=== PATIENT | female | born 1980 | race Two or more races ===

== ENCOUNTER 2019-06-24 17:15 | Emergency (ER) | payer MEDICAID ==
[~2019-06-24] VITALS: Ht 162.6 cm; Wt 90.7 kg
--- NOTE | 2019-06-24 17:33 | NUR ---
PT BIB C/O FEVER AND BODY ACHE FOR 2 DAYS, PT IS AAOX4, NOT IN RESPIRATORY DISTRESS, HOOKED TO MONITOR, KEPT RESTED AND COMFORTABLE, WILL CONTINUE TO MONITOR.
--- NOTE | 2019-06-24 17:38 | NUR ---
urine specimen collected and sent to lab.
--- NOTE | 2019-06-24 17:40 | NUR ---
OLGA BLAKE AT BEDSIDE FOR EVAL.
[2019-06-24] MEDS ORDERED: ONDANSETRON HCL/PF 4 MG/2 ML VIAL ONE (17:53)
[2019-06-24] MEDS ORDERED: IBUPROFEN 600 MG TABLET PO ONE ×2 (17:53→18:00)
[2019-06-24] MEDS ORDERED: IV NS 0.9% 1,000 ML BAG IV ONE (18:00)
[2019-06-24] MEDS ORDERED: ONDANSETRON 4 MG TAB.RAPDIS PO ONE (18:00)
[2019-06-24 18:01] LABS: APPEARANCE,URINE Clear (CLEAR); BILIRUBIN,URINE Negative (NEGATIVE); BLOOD, URINE Negative Ery/uL (NEGATIVE); COLOR,URINE Yellow (YELLOW); KETONES,URINE Negative (NEGATIVE); LEUKOCYTE ESTERASE ,URINE Negative (NEGATIVE); NITRITE, URINE Negative (NEGATIVE); PROTEIN,URINE Negative (NEGATIVE); UGLUCOSE >=1000 mg/dL (NEGATIVE); UROBILINOGEN,URINE 0.2 EU/dL (0.2)
[2019-06-24 18:14] LABS: BACTERIA,URINE Rare /HPF (None Seen); RBC,URINE NONE SEEN /HPF (0-2); SQUAMOUS EPITHELIAL CELL,UR Few /HPF (None Seen); WBC,URINE NONE SEEN /HPF (0-3)
[2019-06-24] MEDS ORDERED: ACETAMINOPHEN ES 500 MG TABLET ONE (18:51)
[2019-06-24] MEDS ORDERED: ACETAMINOPHEN 325 MG TABLET PO ONE (19:00)
[2019-06-24 19:58] VITALS: BP 126/71
--- NOTE | 2019-06-24 19:59 | NUR ---
IV removed. Catheter intact and site benign. Pressure and 4x4 applied to site. No bleeding noted.Patient discharged to home in stable condition. Written and verbal after care instructions given. Patient verbalizes understanding of instruction AND RX. PT'S IS AT THE BEDSIDE AND IS DRIVING THE PT HOME. PT AMBULATED OUT WITH A STEADY GAIT. VSS. PT'S ORAL TEMP WAS NOW 99.7F.
== END 2019-06-24 19:59 | disposition home or self-care (01) ==
LOC: ER 17:21
DX: J10.1 Influenza due to other identified influenza virus with other respiratory manifestations (principal); E11.9 Type 2 diabetes mellitus without complications
CPT/HCPCS: 81001; 84703; 87804 ×2; 99284; J2405; J7030; 81000-TC

== ENCOUNTER 2019-06-30 09:57 | Emergency (ER) | payer MEDICAID ==
[~2019-06-30] VITALS: Ht 162.6 cm; Wt 93.4 kg
--- NOTE | 2019-06-30 12:09 | NUR ---
Patient discharged to home in stable condition. Written and verbal after care instructions given. Patient verbalizes understanding of instruction.
--- NOTE | 2019-06-30 12:17 | NUR ---
Patient discharged to home in stable condition. Written and verbal after care instructions given. Patient verbalizes understanding of instruction.
[2019-06-30 12:19] VITALS: BP 123/67
== END 2019-06-30 12:46 | disposition home or self-care (01) ==
LOC: ER 10:03
DX: R05 Cough (principal); E11.9 Type 2 diabetes mellitus without complications
CPT/HCPCS: 71045-TC

== ENCOUNTER 2019-07-10 20:27 | Emergency (ER) | payer MEDICAID ==
[~2019-07-10] VITALS: Ht 160 cm; Wt 90.7 kg
--- NOTE | 2019-07-10 20:54 | NUR ---
Pt BIBSELF C/O PAIN W/ URINATION X 3 DAYS
[2019-07-10 21:11] LABS: APPEARANCE,URINE SL CLOUDY (CLEAR); BILIRUBIN,URINE NEGATIVE (NEGATIVE); BLOOD, URINE TRACE-INTA Ery/uL (NEGATIVE); COLOR,URINE YELLOW (YELLOW); KETONES,URINE NEGATIVE (NEGATIVE); NITRITE, URINE NEGATIVE (NEGATIVE); PH,URINE 7.5 (5.0-8.0); PROTEIN,URINE NEGATIVE (NEGATIVE); UGLUCOSE >=1000 mg/dL (NEGATIVE); UROBILINOGEN,URINE 0.2 EU/dL (0.2)
[2019-07-10 21:52] LABS: LEUKOCYTE ESTERASE ,URINE 3+ (NEGATIVE); RBC,URINE 0-2 /HPF (0-2); WBC,URINE TOO NUMEROUS TO COUN /HPF (0-3)
[2019-07-10 21:53] LABS: BACTERIA,URINE 2+ /HPF (None Seen); SQUAMOUS EPITHELIAL CELL,UR Few /HPF (None Seen)
--- NOTE | 2019-07-10 21:56 | NUR ---
Patient discharged to home in stable condition. Rx and Written and verbal after care instructions given. Patient verbalizes understanding of instruction.
[2019-07-10 21:57] VITALS: BP 131/78
== END 2019-07-10 21:57 | disposition home or self-care (01) ==
LOC: ER 20:29
DX: N39.0 Urinary tract infection, site not specified (principal); E11.9 Type 2 diabetes mellitus without complications
CPT/HCPCS: 81000-TC; 82962-TC; 84703-TC; 87086-TC; 87186-TC; 87491; 87591

== ENCOUNTER 2019-08-17 23:21 | Emergency (ER) | payer MEDICAID ==
[~2019-08-17] VITALS: Ht 167.6 cm; Wt 90.7 kg
[2019-08-17 23:29] VITALS: BP 147/92
[2019-08-17] MEDS ORDERED: IBUPROFEN 600 MG TABLET PO ONE (23:39)
[2019-08-18] MEDS ORDERED: IBUPROFEN 600 MG TABLET PO ONE
== END 2019-08-17 23:58 | disposition home or self-care (01) ==
LOC: ER 23:23
DX: J01.90 Acute sinusitis, unspecified (principal); R51 Headache; E11.9 Type 2 diabetes mellitus without complications; Z76.0 Encounter for issue of repeat prescription

== ENCOUNTER 2021-05-04 14:02 | Emergency (ER) | payer MEDICAID ==
[~2021-05-04] VITALS: Ht 160 cm; Wt 90.7 kg
--- NOTE | 2021-05-04 14:23 | NUR ---
PT BIBSELF C/O ABDOMINAL PAIN AND DYSURIA WHILE AT WORK [employer]. PT A/OX4. TOLERATING R/A WELL WITH NO SOB. CONNECTED PT TO POX AND MONITOR.
--- NOTE | 2021-05-04 14:43 | NUR ---
URINE COLLECTED AND SENT TO LAB
[2021-05-04] MEDS ORDERED: MAG HYDROX/AL HYDROX/SIMETH 30 ML UDC PO ONE (15:00)
[2021-05-04] MEDS ORDERED: LIDOCAINE VISCOUS 2% UD 15 ML UDC MM ONE (15:00)
[2021-05-04] MEDS ORDERED: ONDANSETRON 4 MG TAB.RAPDIS SL ONE (15:00)
[2021-05-04] MEDS ORDERED: DICYCLOMINE HCL 10 MG CAPSULE PO ONE ×2 (15:00→15:24)
[2021-05-04] MEDS ORDERED: MAG HYDROX/AL HYDROX/SIMETH 30 ML UDC ONE (15:23)
[2021-05-04] MEDS ORDERED: LIDOCAINE VISCOUS 2% UD 15 ML UDC ONE (15:24)
[2021-05-04] MEDS ORDERED: ONDANSETRON 4 MG TAB.RAPDIS ONE (15:24)
[2021-05-04 15:33] LABS: BILIRUBIN,URINE NEGATIVE (NEGATIVE); COLOR,URINE YELLOW (YELLOW); LEUKOCYTE ESTERASE ,URINE NEGATIVE (NEGATIVE); NITRITE, URINE NEGATIVE (NEGATIVE); PROTEIN,URINE NEGATIVE (NEGATIVE); UGLUCOSE NEGATIVE (NEGATIVE); UROBILINOGEN,URINE 0.2 EU/dL (0.2)
[2021-05-04 15:40] LABS: BASOPHILS % (AUTO) 0.5 % (0.0-2.0); EOSINOPHILS % (AUTO) 2.9 % (0.0-6.0); HEMATOCRIT 36 % (33-45); HEMOGLOBIN 11.6 g/dL (11.5-14.8); LYMPHOCYTES # (AUTO) 2.1 K/uL (0.8-4.8); LYMPHOCYTES % (AUTO) 24.9 % (20.0-44.0); MEAN CORPUSCULAR HGB CONC 32 g/dl (31.0-36.0); MEAN CORPUSCULAR VOLUME 77 fL (82-100); MONOCYTES # (AUTO) 0.8 K/uL (0.1-1.30); MONOCYTES % (AUTO) 8.8 % (2.0-12.0); NEUTROPHILS # (AUTO) 5.4 K/uL (1.8-8.9); NEUTROPHILS % (AUTO) 62.9 % (43.0-81.0); PLATELET COUNT (AUTO) 397 K/uL (150-450); RED BLOOD CELL COUNT(AUTO) 4.63 MIL/uL (4.0-5.2); WHITE BLOOD COUNT (AUTO) 8.6 K/uL (4.3-11.0)
[2021-05-04 16:00] LABS: CALCIUM, SERUM 8.6 mg/dL (8.5-10.1); CREATININE 0.7 mg/dL (0.6-1.3); POTASSIUM 3.8 mmol/L (3.5-5.1)
[2021-05-04 16:11] LABS: ALBUMIN 3.3 g/dL (3.4-5.0); BILIRUBIN,DIRECT 0.1 mg/dL (0.0-0.2); BILIRUBIN,TOTAL 0.2 mg/dL (0.2-1.0); TOTAL PROTEIN, SERUM 7.2 g/dL (6.4-8.2)
[2021-05-04] MEDS ORDERED: DICY10CA37 PO (16:26)
--- NOTE | 2021-05-04 17:00 | NUR ---
Patient discharged to home in stable condition. RX Written and verbal after care instructions given. Patient verbalizes understanding of instruction. PT ambulatory with a steady gait
[2021-05-04 17:03] VITALS: BP 131/87
== END 2021-05-04 17:06 | disposition home or self-care (01) ==
LOC: ER 14:09
DX: R10.13 Epigastric pain (principal); R30.0 Dysuria
CPT/HCPCS: 36415; 80048; 80076; 81003; 83690; 84703; 85025; 99284; Q0162

== ENCOUNTER 2021-09-19 17:01 | Emergency (ER) | payer MEDICAID ==
[~2021-09-19] VITALS: Ht 162.6 cm; Wt 98.4 kg
[~2021-09-19 17:01] MED LIST: DICY10CA37 PO
[2021-09-19] MEDS ORDERED: HYDROCODONE/APAP 5/325MG TABLET ONE (18:00)
[2021-09-19] MEDS ORDERED: IBUPROFEN 600 MG TABLET PO ONE (18:00)
[2021-09-19] MEDS ORDERED: IBUPROFEN 600 MG TABLET ONE (18:00)
[2021-09-19] MEDS ORDERED: HYDROCODONE/APAP 5/325MG TABLET PO ONE (18:00)
--- NOTE | 2021-09-19 18:00 | NUR ---
BIB C/O L FOOT PAIN AND SWELLING S/P SLIP AND FALL IN THE BATHROOM.PLACED COMFORTABLY IN BED. VITALS CHECKED.
--- NOTE | 2021-09-19 18:04 | NUR ---
DISCLAIMER SIGNED THAT PATIENT IS NOT
[2021-09-19] MEDS ORDERED: TRAM50TA2 PO (18:07)
--- NOTE | 2021-09-19 18:07 | NUR ---
PAIN MEDICATION GIVEN
[2021-09-19 19:05] VITALS: BP 135/77
--- NOTE | 2021-09-19 19:05 | NUR ---
Patient discharged to home in stable condition. Written and verbal after care instructions given. Patient verbalizes understanding of instruction.
== END 2021-09-19 19:07 | disposition home or self-care (01) ==
LOC: ER 17:03
DX: S92.515A Nondisplaced fracture of proximal phalanx of left lesser toe(s), initial encounter for closed fracture (principal); E11.9 Type 2 diabetes mellitus without complications; Z79.899 Other long term (current) drug therapy; W01.0XXA Fall on same level from slipping, tripping and stumbling without subsequent striking against object, initial encounter; Y93.89 Activity, other specified; Y92.89 Other specified places as the place of occurrence of the external cause; Y99.8 Other external cause status
CPT/HCPCS: 73630-TC